=== PATIENT | female | born 1960 | race Two or more races ===

== ENCOUNTER 2022-11-13 06:46 | Day surgery (SDC) | payer OTHER ==
[~2022-11-13] VITALS: Ht 157.5 cm; Wt 81.6 kg
[~2022-11-13 06:46] MED LIST: ALBUAER3 IN; ASPI81CH74 PO; BECL80AE11 IN; CETI10TA2 PO; CHOL1CAP58 PO; LISI-706 PO; METO25TA36 PO; PRAV20TA3 PO; TIOT1AER IN
[2022-11-13] MEDS ORDERED: LIDOCAINE 2%HCL (LOCAL ANESTH.) INJ 10ml MDV ONE (07:44)
[2022-11-13] MEDS ORDERED: IODIXANOL 320MG/ML 100ML BTL IV ONE (07:44)
[2022-11-13] MEDS ORDERED: HEPARIN SODIUM (PORCINE) 5000 UNITS/ML 1ML VIAL ONE (07:53)
[2022-11-13] MEDS ORDERED: fentaNYL CITRATE 100 MCG/2 ML VL ONE (07:53)
[2022-11-13] MEDS ORDERED: ANGIOMAX 250 MG VIAL IV ONE (07:53)
[2022-11-13] MEDS ORDERED: VERAPAMIL 2.5MG/ML INJ 2ML VIAL IV ONE (07:53)
[2022-11-13] MEDS ORDERED: SODIUM CHL 0.9% 0 ML ONE (07:54)
[2022-11-13] MEDS ORDERED: MIDAZOLAM HCL 2MG/2ML 2ml VIAL (1mg/ml) ONE (07:54)
[2022-11-13 08:23] VITALS: BP 114/56
[2022-11-13 08:42] VITALS: BP 114/56
[2022-11-13 09:12] VITALS: BP 117/51
[2022-11-13 09:28] VITALS: BP 118/46
[2022-11-13 09:58] VITALS: BP 107/53
[2022-11-13 10:24] VITALS: BP 114/51
== END 2022-11-13 10:35 | disposition home or self-care (01) ==
LOC: CATH 06:46
PROVIDERS: ATTEND Internal Medicine Cardiovascular Disease
DX: R94.39 Abnormal result of other cardiovascular function study (principal); I25.10 Atherosclerotic heart disease of native coronary artery without angina pectoris; I25.82 Chronic total occlusion of coronary artery; Z79.82 Long term (current) use of aspirin; E66.01 Morbid (severe) obesity due to excess calories; F17.210 Nicotine dependence, cigarettes, uncomplicated; Z98.890 Other specified postprocedural states; I11.9 Hypertensive heart disease without heart failure; Z20.822 Contact with and (suspected) exposure to COVID-19
CPT/HCPCS: 93458; C1769; C1894; J1644; J2001; J2250; J3010; J7030; Q9967; U0003